=== PATIENT | male | born 1935 | race Caucasian/White ===

== ENCOUNTER 2022-08-08 01:01 | Emergency (ER) | payer OTHER ==
[~2022-08-08] VITALS: Ht 175.3 cm; Wt 77.1 kg
[~2022-08-08 01:01] MED LIST: ASPI325 PO; DORZOPSO BOTHEYES; OXYACE5T PO; PRED1SU BOTHEYES
[2022-08-08 01:29] LABS: Hematocrit 46.9 % (37.0-53.0); Hemoglobin 14.6 g/dL (13.5-17.5); Mean Corpuscular HGB 30.5 pg (26.0-34.0); Mean Corpuscular HGB Conc 31.1 g/dL (31.5-36.5); Mean Corpuscular Volume 98 fL (80-100); Mean Platelet Volume 11.5 fL (9.1-12.4); NRBC ABSOLUTE 0.05 K/mm3 (0.00-0.02); NRBC Auto 0.5 /100 WBC (0.0-0.2); Platelet Count 118 K/mm3 (150-400); RDW Coefficient Variation 13.3 % (11.7-14.2); RDW Standard Deviation 48.7 fL (35.1-46.3); Red Blood Cell Count 4.78 M/mm3 (4.30-5.90); White Blood Cell Count 10.56 K/mm3 (4.00-11.30)
[2022-08-08 01:46] LABS: BAND PERCENT MAN 3 % (0-8); BASOPHILS PERCENT MAN 0 % (0-2); EOSINOPHILS ABSOLUTE MAN 0.31 K/mm3 (0.00-0.68); EOSINOPHILS PERCENT MAN 3 % (0-6); LYMPHOCYTES % ATYPICAL MANUAL 7 % (0-0); LYMPHOCYTES ABSOLUTE MAN 8.87 K/mm3 (0.84-5.20); LYMPHOCYTES PERCENT MAN 77 % (21-46); MONOCYTES ABSOLUTE MAN 0.31 K/mm3 (0.16-1.47); MONOCYTES PERCENT MAN 3 % (4-13); MYELOCYTE PERCENT MAN 1 % (0-0); NEUTROPHILS ABSOLUTE MAN 0.95 K/mm3 (1.96-9.15); SEG NEUTROPHILS PERCENT MAN 6 % (41-73); TOTAL CELLS COUNTED 100
[2022-08-08 01:47] LABS: Alanine Aminotransfer (ALT/SGP 418 U/L (12-78); Albumin, Blood 2.8 g/dL (3.4-5.0); Albumin/Globulin Ratio 0.8 (0.8-1.8); Alk Phos 131 U/L (50-136); Anion Gap 17 mmol/L (6-16); Aspartate Aminotrans (AST/SGOT 450 U/L (12-37); Bilirubin, Total 0.4 mg/dL (0.1-1.0); Blood Urea Nitrogen 11 mg/dL (8-24); Bun/Creatinine Ratio 10.7 (12.0-20.0); CHOL/HDL RATIO 4.7; CO2, Blood 19 mmol/L (21-32); Calcium, Blood 8.7 mg/dL (8.5-10.1); Chloride, Blood 102 mmol/L (98-108); Cholesterol 173 mg/dL (50-200); Creatinine, Blood 1.03 mg/dL (0.60-1.20); Globulin, Blood 3.5 g/dL (2.2-4.0); Glomerular Filtration Rate 71 (60-); Glucose, Blood 328 mg/dL (70-99); HDL Cholesterol 37 mg/dL (>39); LDL/HDL RATIO 2.3; Low Density Lipoprotein Chol 87 mg/dL (0-110); Magnesium, Blood 2.8 mg/dL (1.6-2.4); Potassium, Blood 3.9 mmol/L (3.5-5.5); Sodium, Blood 138 mmol/L (136-145); Total Protein, Blood 6.3 g/dL (6.4-8.2); Triglycerides 246 mg/dL (30-160); Very Low Density Lipoprot Chol 49 mg/dL (6-32)
--- NOTE | 2022-08-08 02:48 | NUR ---
Upon responding to a call-back, I visit with pt's spouse Jayden. She is grieving appropriately. I conduct a life review, and provide therapeutic listening, grief support and prayer. Jayden responds well and shows signs of being comforted.
== END 2022-08-08 03:05 ==
LOC: ER 01:01 → ICUW 01:32 → ER 01:32 → ICUW 01:55
PROVIDERS: Emergency Medicine
DX: I46.9 Cardiac arrest, cause unspecified (principal); Z79.899 Other long term (current) drug therapy; Z79.82 Long term (current) use of aspirin; Z87.891 Personal history of nicotine dependence
CPT/HCPCS: 31500; 51702; 71045; 80053; 80061; 83735; 84484; 85025; 86850; 86900; 86901; 92950; 93005; 93010; 94002; 96374-59; 96375-59; 96376-59; 99285-25; A9270; J0171; J0282; J1644; J7030; J7050; J7060